=== PATIENT | male | born 1995 | race Caucasian/White ===

== ENCOUNTER 2020-04-04 22:20 | Emergency (ER) | payer BC ==
[~2020-04-04] VITALS: Ht 182.9 cm; Wt 78.0 kg
[2020-04-04 22:31] VITALS: BP 171/104
--- NOTE | 2020-04-04 22:35 | NUR ---
FIRST CONTACT WITH PT. PT STATES HE "I SLIPPED ON SOME ROCKS AND HIT MY HEAD. I HAD A BLIND SPOT IN MY VISION. AND MY SPEECH WAS SLURRED" THIS WAS AROUND 1800 TODAY. DENIES LOC. ALL SYMPTOMS RESOLVED PER PT. PT DENIES ANY PAIN/N/V/TUCKER. PT'S AOX4. RESPS EVEN AND UNLABORED. BP/SPO2 MONITORS IN PLACE. CALL LIGHT WITHIN REACH. PA AT BEDSIDE TO EVALUATE AT THIS TIME.
--- NOTE | 2020-04-04 22:44 | NUR ---
PT BACK TO ROOM FROM CT AT THIS TIME.
--- NOTE | 2020-04-04 23:43 | NUR ---
Patient given discharge instructions and they have confirmed that they understand the instructions. Patient ambulatory with steady gait.
== END 2020-04-04 23:44 | disposition home or self-care (01) ==
LOC: ED 22:50
DX: S09.90XA Unspecified injury of head, initial encounter (principal); W19.XXXA Unspecified fall, initial encounter; Y93.89 Activity, other specified; Y92.830 Public park as the place of occurrence of the external cause; Y99.8 Other external cause status
CPT/HCPCS: 70450; 99284